=== PATIENT | male | born 2000 | race American Indian/Alaskan Native ===

== ENCOUNTER 2023-08-14 12:46 | Emergency (ER) | payer MEDICAID, OTHER ==
[2023-08-14] MEDS ORDERED: Ketorolac 30 MG/ML SDV IM ONE (13:20)
== END 2023-08-14 13:32 | disposition home or self-care (01) ==
LOC: DL.ED 12:46
DX: S09.90XA Unspecified injury of head, initial encounter (principal); W01.198A Fall on same level from slipping, tripping and stumbling with subsequent striking against other object, initial encounter
CPT/HCPCS: 70450; 72125; 99282; 99284